=== PATIENT | male | born 1950 ===

== ENCOUNTER 2020-09-19 07:21 | Inpatient (IN) | payer MEDICARE ==
[~2020-09-19] VITALS: Ht 172.7 cm; Wt 89.5 kg
[2020-09-19 08:00] VITALS: BP 180/92
[2020-09-19] MEDS ORDERED: 'XANAX1 MG PO (08:38)
[2020-09-19] MEDS ORDERED: ADULT LOW DOSE81 MG PO (08:39)
[2020-09-19] MEDS ORDERED: LIPITOR40 MG PO (08:40)
[2020-09-19] MEDS ORDERED: SEROPHENE50 MG PO (08:40)
[2020-09-19] MEDS ORDERED: TRAMADOL HCL50 MG PO (08:41)
[2020-09-19] MEDS ORDERED: SEROQUEL50 MG PO (08:45)
[2020-09-19 10:10] VITALS: BP 178/86
[2020-09-19] MEDS ORDERED: METHOCARBAMOL500 M1 PO (11:44)
[2020-09-19] MEDS ORDERED: TOPROL XL50 M1 PO (11:47)
[2020-09-19 20:00] VITALS: BP 112/71
[2020-09-20 06:09] LABS: BASO # 0.1 10*3/uL (0.0-0.1); BASO % 0.5 % (0.0-1.0); EOS # 0.3 10*3/uL (0.0-0.4); EOS % 2.8 % (1.0-4.0); HEMATOCRIT 44.6 % (42.0-52.0); LYMPH # 1.3 10*3/uL (1.3-4.4); LYMPH % 13.5 % (27.0-41.0); MEAN CELL VOLUME 93.3 fl (80.0-94.0); MEAN CORPUSCULAR HGB 30.1 pg (27.0-31.0); MEAN CORPUSCULAR HGB CONC 32.3 g/dl (33.0-37.0); MEAN PLATELET VOLUME 10.3 fl (9.6-12.3); MONO # 0.8 10*3/uL (0.1-1.0); MONO % 8.3 % (3.0-9.0); NEUT # 7.2 10*3/uL (2.3-7.9); NEUT % 74.5 % (47.0-73.0); PLATELET COUNT AUTOMATED 302 10*3/uL (130-400); RED BLOOD COUNT 4.78 10*6/uL (4.50-5.90); RED CELL DISTRI WIDTH 13.3 % (0-14.5); WHITE BLOOD COUNT 9.7 10*3/uL (4.8-10.8)
[2020-09-20 06:23] LABS: ALBUMIN 3.1 gm/dl (3.1-4.5); BUN 8 mg/dl (7-24); CHLORIDE 110 mmol/L (98-107); CHOLESTEROL 112 mg/dL (<200); CREATININE 0.91 mg/dL (0.70-1.30); POTASSIUM 3.4 mmol/L (3.5-5.1); SGOT/AST 26 IU/L (3-35); SGPT/ALT 33 U/L (12-78); SODIUM 139 mmol/L (136-145); TRIGLYCERIDES 112 mg/dl (<150)
[2020-09-20 06:33] LABS: ALKALINE PHOSPHATASE 173 U/L (45-117); LDL CHOLESTEROL 43 mg/dL (9-159); THYROID STIM HORMONE (HS) 0.878 uIU/ml (0.358-4.75); TOTAL PROTEIN 7.6 gm/dL (6.4-8.2)
[2020-09-20 07:05] VITALS: BP 148/77
[2020-09-20 07:57] LABS: VITAMIN D, 25-HYDROXY 9.4 ng/mL (30-100)
[2020-09-20 17:21] LABS: BILIRUBIN 1+ (Negative); BLOOD Negative (Negative); CLARITY Cloudy (Clear); COLOR Dark Yellow (Yellow); GLUCOSE Negative (Negative); KETONE Trace (Negative); LEUKO ESTERASE 1+ (Negative); NITRITE Negative (Negative); PH 5.5 (4.5-8.0); SPECIFIC GRAVITY 1.025 (1.001-1.030)
[2020-09-20 18:15] LABS: COARSE GRANULAR CAST 0-2; FINE GRANULAR CAST 0-2; MUCOUS 2+; RBC 0-2 rbc/hpf (0-2)
[2020-09-20 20:00] VITALS: BP 135/86
[2020-09-21 08:00] VITALS: BP 167/79
[2020-09-21 20:00] VITALS: BP 132/70
[2020-09-22 07:42] VITALS: BP 120/85
[2020-09-22 20:00] VITALS: BP 134/84
[2020-09-23 20:00] VITALS: BP 132/86
[2020-09-24 08:00] VITALS: BP 164/89
[2020-09-24] MEDS ORDERED: VITAMIN D350 MCG PO (08:22)
[2020-09-24] MEDS ORDERED: VITAMIN D31250 MC1 PO (08:22)
[2020-09-24] MEDS ORDERED: Vitamin D (1,000 UNI PO (08:56)
[2020-09-24] MEDS ORDERED: ALPRAZOLAM0.5 M3 PO (08:56)
[2020-09-24] MEDS ORDERED: MIRTAZAPINE15 M2 PO (08:56)
[2020-09-24] MEDS ORDERED: Vitamin D (50,000 UN PO (08:56)
== END 2020-09-24 11:03 | disposition home or self-care (01) | DRG 885 ==
LOC: 3N 07:21
PROVIDERS: ADMIT Psychiatry & Neurology Psychiatry; ATTEND Psychiatry & Neurology Psychiatry
DX: F33.3 Major depressive disorder, recurrent, severe with psychotic symptoms (principal); I10 Essential (primary) hypertension; F41.9 Anxiety disorder, unspecified; F12.10 Cannabis abuse, uncomplicated; G47.00 Insomnia, unspecified; E78.5 Hyperlipidemia, unspecified; Z80.1 Family history of malignant neoplasm of trachea, bronchus and lung; Z88.7 Allergy status to serum and vaccine; Z88.6 Allergy status to analgesic agent; Z91.041 Radiographic dye allergy status; Z88.8 Allergy status to other drugs, medicaments and biological substances; Z79.82 Long term (current) use of aspirin; Z79.899 Other long term (current) drug therapy